=== PATIENT | male | born 1950 | race Caucasian/White ===

== ENCOUNTER 2018-08-31 10:34 | Observation (INO) | payer OTHER ==
[2018-08-31] MEDS ORDERED: ASPIRIN TABLET 325 MG TAB PO ONE (10:45)
[2018-08-31] MEDS ORDERED: ALUM & MAG HYDROX-SIMETHICONE 30 ML, LIDOCAINE VISCOUS 2% 15 ML PO ONE ×2 (10:45)
[2018-08-31] MEDS ORDERED: ALUM & MAG HYDROX-SIMETHICONE 30 ML UD ONE (10:55)
[2018-08-31] MEDS ORDERED: LIDOCAINE HCL 2% (MOUTH-THROAT) 15 ML UD ONE (10:55)
--- NOTE | 2018-08-31 11:09 | RAD ---
EXAM DESCRIPTION: Chest,1 View CLINICAL HISTORY: chest pain, flushing FINDINGS/ IMPRESSION: Comparison 09/01/2011 Normal heart size. No edema, infiltrate or effusion No pneumothorax or acute bony abnormality Electronically signed by: Gaston Espino MD 08/31/2018 11:08 AM [facility]
[2018-08-31] MEDS ORDERED: NITROGLYCERIN 0.4 MG 25 EA TAB SL ONE ×2 (12:17→12:24)
[2018-08-31] MEDS ORDERED: MORPHINE SULFATE INJ 10 MG/ML VIAL ONE (12:57)
[2018-08-31] MEDS ORDERED: MORPHINE SULFATE INJ 10 MG/ML VIAL IV ONE (13:33)
[2018-08-31] MEDS ORDERED: PANTOPRAZOLE INJECTION 40 MG in SODIUM CHLORIDE 0.9% 100ML 100 ML IVPB ONE (14:41)
[2018-08-31] MEDS ORDERED: SUCRALFATE 1 GM/10 ML 1 GM UD PO ONE (14:41)
--- NOTE | 2018-08-31 14:47 | ED.PDOC ---
History of Present Illness - General Chief Complaint: Chest Pain/LA Stated Complaint: chest pain Time Seen by Provider: 08/31/18 10:39 Source: patient Exam Limitations: no limitations - History of Present Illness Initial Comments: The patient is a 67-year-old male presenting to the emergency room secondary to chest pain that started while he was sitting working on the computer about an hour prior to arrival. Chest pain was substernal giving a little bit of shortness of breath and a little bit of flushing. At its worst it was really only about a 5 out of 10. By the time he arrived here it was down to about a 2 out of 10. Medications including a GI cocktail, nitroglycerin and morphine have all really done nothing to affect it. The discomfort is still very minor and present. He does have mild anterior chest wall discomfort palpation as well as a long-standing history of reflux issues. No fevers. He did eat a cheeseburger last night which is apparently unusual for him. The patient does see cardiology in [place] and has had a stent a few years ago. He does not take Plavix. Timing/Duration: 1 hour Severity: mild Improving Factors: nothing Worsening Factors: nothing Associated Symptoms: chest pain Allergies/Adverse Reactions: Allergies Butorphanol [From Stadol] Adverse Reaction (Verified 08/31/18 12:24) Home Medications: Ambulatory Orders Amitriptyline HCl [Elavil] 25 mg PO BEDTIME 08/31/18 Aspirin [Aspirin Low Strength] 81 mg PO DAILY 08/31/18 Review of Systems - Review of Systems Constitutional: States: no symptoms reported EENTM: States: no symptoms reported Respiratory: States: no symptoms reported Cardiology: States: chest pain Gastrointestinal/Abdominal: States: no symptoms reported Genitourinary: States: no symptoms reported Musculoskeletal: States: no symptoms reported Skin: States: no symptoms reported Neurological: States: anxiety Endocrine: States: no symptoms reported All other Systems: No Change from Baseline Past Medical History (General) - Patient Medical History Hx Cancer: No Hx Hepatitis C: No - Vaccination History Hx Tetanus, Diphtheria Vaccination: Yes Hx Influenza Vaccination: No Hx Pneumococcal Vaccination: Yes - Social History Hx Tobacco Use: No Hx Alcohol Use: No Hx Substance Use: No Hx Substance Use Treatment: No Hx Depression: No Family Medical History - Family History Mother Family History: Unknown Physical Exam - Physical Exam General Appearance: Alert, Anxious, No apparent distress Eye Exam: bilateral normal Ears, Nose, Throat: hearing grossly normal, normal ENT inspection, normal pharynx Neck: full range of motion, supple Respiratory: lungs clear, normal breath sounds, no respiratory distress, no accessory muscle use, other - he does actually have anterior chest wall discomfort palpation. Cardiovascular/Chest: normal peripheral pulses, regular rate, rhythm, no edema Peripheral Pulses: radial,right: 2+, radial,left: 2+, dorsalis pedis,right: 2+, dorsalis pedis,left: 2+ Gastrointestinal/Abdominal: non tender, soft Rectal Exam: deferred Back Exam: normal inspection, no CVA tenderness Extremity: normal range of motion, non-tender, normal inspection, no pedal edema, normal capillary refill Neurologic: production consultant II-XII nml as tested, alert, normal mood/affect, oriented x 3 Skin Exam: normal color Comments: Vital Signs - 24 hr 08/31/18 08/31/18 08/31/18 10:49 11:15 11:45 Temperature 98.7 F Pulse Rate [ 86 83 75 monitor] Respiratory 20 15 13 Rate Blood Pressure 152/91 154/92 141/85 [RA] O2 Sat by Pulse 96 96 95 Oximetry 08/31/18 08/31/18 08/31/18 12:15 12:26 12:45 Temperature 97.5 F L Pulse Rate [ 76 96 H 91 H monitor] Respiratory 17 20 18 Rate Blood Pressure 145/91 116/78 155/89 [RA] O2 Sat by Pulse 97 94 L 99 Oximetry 08/31/18 13:05 Temperature Pulse Rate [ 80 monitor] Respiratory 18 Rate Blood Pressure 116/75 [RA] O2 Sat by Pulse 94 L Oximetry Progress - Progress Progress: 08/31/18 14:48 the patient is a 67-year-old male presenting to the emergency room with chest pain that is actually very mild in nature. Source of the chest pain is not entirely certain at this point. He does have a significant cardiac history. The first set of enzymes are negative on the patient. He'll be placed in observation for the longer rule out given his history. He does have several confounding issues such as long-standing reflux and some mild chest wall discomfort. Admitted for further monitoring and care. He has received a dose of Lovenox and aspirin. Telemetry monitoring has shown normal sinus rhythm. Doses of morphine and nitroglycerin do not appear to have made any difference. He is receiving GI medications of Carafate and Protonix. - Results/Orders Results/Orders: Laboratory Tests 08/31/18 08/31/18 08/31/18 10:50 10:50 10:50 WBC 5.7 RBC 5.29 Hgb 15.7 Hct 46.4 MCV 87.8 MCH 29.7 MCHC 33.8 RDW 13.8 Plt Count 199 MPV 9.7 Absolute Neuts (auto) 3.70 Absolute Lymphs (auto) 1.50 Absolute Monos (auto) 0.30 Absolute Eos (auto) 0.10 Absolute Basos (auto) 0.10 Neutrophils % 64.6 Lymphocytes % 27.1 Monocytes % 5.3 Eosinophils % 1.8 Basophils % 1.2 PT 10.4 INR 1.04 PTT (SP) 24.2 D-Dimer, Quantitative 0.29 Sodium 138 Potassium 4.4 Chloride 103 Carbon Dioxide 28 Anion Gap 11.4 L BUN 17 Creatinine 1.21 BUN/Creatinine Ratio 14.0 Random Glucose 151 H Serum Osmolality 280.1 Calcium 9.4 Magnesium 1.8 Total Bilirubin 0.7 AST 24 ALT 58 Alkaline Phosphatase 60 Creatine Kinase 93 CK-MB (CK-2) 1.5 CK-MB (CK-2) % Not Reportable Troponin I < 0.02 B-Natriuretic Peptide < 5.0 Serum Total Protein 7.3 Albumin 4.0 Globulin 3.3 Albumin/Globulin Ratio 1.2 08/31/18 13:56 WBC RBC Hgb Hct MCV MCH MCHC RDW Plt Count MPV Absolute Neuts (auto) Absolute Lymphs (auto) Absolute Monos (auto) Absolute Eos (auto) Absolute Basos (auto) Neutrophils % Lymphocytes % Monocytes % Eosinophils % Basophils % PT INR PTT (SP) D-Dimer, Quantitative Sodium Potassium Chloride Carbon Dioxide Anion Gap BUN Creatinine BUN/Creatinine Ratio Random Glucose Serum Osmolality Calcium Magnesium Total Bilirubin AST ALT Alkaline Phosphatase Creatine Kinase 88 CK-MB (CK-2) 1.3 CK-MB (CK-2) % Not Reportable Troponin I < 0.02 B-Natriuretic Peptide Serum Total Protein Albumin Globulin Albumin/Globulin Ratio EKG shows normal sinus rhythm at 84 bpm. Normal axis. Normal voltage. Normal R-wave progression. No ST segment or T-wave changes consistent with acute ischemia. Normal QT interval. Chest x-ray shows no acute pathology. Departure - Departure Clinical Impression: Chest pain at rest Disposition: Admit Patient Home Medications: Ambulatory Orders Amitriptyline HCl [Elavil] 25 mg PO BEDTIME 08/31/18 Aspirin [Aspirin Low Strength] 81 mg PO DAILY 08/31/18 Decision To Admit - Decistion To Admit Decision to Admit Reason: Medical Nature Decision to Admit Date: 08/31/18 Decision to Admit Time: 14:50
--- NOTE | 2018-08-31 15:01 | HP ---
SUPERVISING PHYSICIAN: Owen Thompson MD CHIEF COMPLAINT: Chest pain. HISTORY OF PRESENT ILLNESS: This is a 67-year-old male patient with a history of coronary artery disease who came to the Emergency Room with chest pain. 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 At that time, he noted some chest discomfort which he attributed to reflux. He states he has reflux on a regular basis, but does not really take anything for it. He states he drinks a lot of water and sits up and it usually will go away. He decided to come in and pay some bills in town and continued to have the discomfort. Therefore, he came to the Emergency Room and sat in the parking lot for a second to see if it would go away, but it did not. Therefore, he came into the Emergency Room and was evaluated. His EKG did not show any acute changes and his troponins were negative times two. Given his history of coronary artery disease, Dr. Andre referred the patient for observation. The patient states he had a hamburger last night which he does not normally do and he had not in the last six months or so. He states he used to take Nexium for reflux, but he states it actually made the reflux worse, so he stopped taking it. In fact, the patient does tell me also that he was on about 5 or 6 medications for his heart. He could not give me the exact names, but states several were for blood pressure, one was a statin for his cholesterol and blood thinners as well. He states he was intolerant to these medicines and was told by Dr. Sharpe the last he was at the office that he did not need to take them anymore. The only thing he takes right now is amitriptyline and a baby aspirin. PAST MEDICAL HISTORY: 1. Myocardial infarction in March of 2017 for which he had a stent placed. He states he does not have a stent card and he does not know which vessel was stented. 2. Hiatal hernia. PAST SURGICAL HISTORY: 1. Percutaneous transluminal coronary angioplasty with stent. 2. Neck fusion. CURRENT MEDICATIONS: 1. Aspirin 81 mg p.o. daily. 2. Amitriptyline 25 mg at bedtime. ALLERGIES: BUTORPHANOL. FAMILY HISTORY: He states he has some family with hypertension and coronary artery disease. SOCIAL HISTORY: Nondrinker, nonsmoker. No illicit drugs. REVIEW OF SYSTEMS: CONSTITUTIONAL: No fever or chills. No recent weight loss or weight gain. HEENT: No headaches, vision changes, ear pain, nasal congestion or throat pain. RESPIRATORY: No cough, hemoptysis or pleuritic chest pain. CARDIOVASCULAR: Positive for chest pain. No palpitations or peripheral edema. GASTROINTESTINAL: Positive for reflux. No nausea, vomiting, diarrhea, constipation or abdominal pain. GENITOURINARY: No dysuria, frequency or flank pain. HEMATOLOGIC: No easy bruising and no transfusion reaction. MUSCULOSKELETAL: He does have intermittent neck pain, but does not think it is on a regular basis. No joint pain or joint swelling. No muscle cramps. INTEGUMENTARY: No rashes, lesions or wounds. ENDOCRINE: No polydipsia, polyuria or polyphagia. No heat or cold intolerance. NEUROLOGIC: Positive for some weakness, but no syncope, paresthesias or seizures. PHYSICAL EXAMINATION: VITAL SIGNS: Blood pressure 116/76. Heart rate 80. Respiratory rate 18. Temperature 97.5. Oxygen saturation 94%. GENERAL: Mr. Encarnacion is a 67-year-old male patient in no active distress currently. HEENT: Normocephalic, atraumatic. Pupils are equal and reactive. No nasal drainage. Throat with moist mucosa. NECK: Supple. Midline trachea. No jugular venous distention. CHEST: Symmetrical with equal rise and fall of the chest with inspiration and expiration. Lung sounds are clear to auscultation bilaterally. CARDIOVASCULAR: Regular rate and rhythm. Normal S1, S2. ABDOMEN: Soft. Positive bowel sounds. Obese. GENITOURINARY: Deferred. EXTREMITIES: Pulses 2+. Capillary refill is less than 2 seconds. NEUROLOGIC: The patient is alert and oriented. Moves all extremities. Extraocular movements are intact. LABORATORY: Labs show negative troponin. Chemistries unremarkable except for elevated glucose of 151. CBC is completely normal. Coags are normal. Chest x- ray does not show any acute cardiopulmonary processes. ASSESSMENT: 1. Chest pain, rule out acute coronary syndrome. 2. History of coronary artery disease status post stent in March of 2017. 3. Gastroesophageal reflux disease with a hiatal hernia. PLAN: At this time, the patient will be placed in the hospital as observation for serial cardiac enzymes as well as EKGs. If all those remain normal, then he can go home tomorrow with a followup with Dr. Sharpe, who is his early interventionist. The patient really refuses to take any statins or cardiac medications so none of these will be started at this time. If anything becomes abnormal, I will discuss with Dr. Sharpe and facilitate a transfer at that time. #[id number] [facility]
[2018-08-31] MEDS ORDERED: SODIUM CHLORIDE 0.9% 100ML 100 ML IVPB ONE (15:04)
[2018-08-31] MEDS ORDERED: PANTOPRAZOLE SODIUM IV 40 MG VIAL ONE (15:04)
[2018-08-31] MEDS ORDERED: ENOXAPARIN SODIUM 100 MG/ML SYG SUBCU ONE (15:07)
[2018-08-31] MEDS ORDERED: NITROGLYCERIN 0.4 MG 25 EA TAB SL PRN (15:09)
[2018-08-31] MEDS ORDERED: SODIUM CHLORIDE 0.9% (FLUSH) 10 ML SYG IV PRN (15:09)
[2018-08-31] MEDS ORDERED: MORPHINE SULFATE INJ 10 MG/ML VIAL IV PRN (15:09)
[2018-08-31] MEDS ORDERED: ACETAMINOPHEN 325 MG TAB PO PRN (15:09)
[2018-08-31] MEDS ORDERED: IV SET AND CAP CHANGE INJ INJ SCH (15:30)
[2018-08-31] MEDS: SODIUM CHLORIDE 0.9% (FLUSH) 10 ML SYG IV SCH (20:33)
[2018-08-31] MEDS: FAMOTIDINE 20 MG TAB PO SCH (20:33)
[2018-09-01 06:34] VITALS: BP 132/83; TEMP 98.3; O2SAT 95
[2018-09-01] MEDS ORDERED: ASPIRIN TABLET 325 MG TAB ONE (06:54)
[2018-09-01] MEDS: FAMOTIDINE 20 MG TAB PO SCH (08:02)
[2018-09-01] MEDS: SODIUM CHLORIDE 0.9% (FLUSH) 10 ML SYG IV SCH (08:02)
[2018-09-01] MEDS ORDERED: ASPIRIN TABLET 325 MG TAB PO SCH (09:00)
--- NOTE | 2018-09-01 15:38 | DS ---
SUPERVISING PHYSICIAN: Owen Thompson MD ADMISSION DIAGNOSIS: 1. Chest pain, rule out acute coronary syndrome. 2. History of coronary artery disease status post stent in March of 2017. 3. Gastroesophageal reflux disease with hiatal hernia. DISCHARGE DIAGNOSIS: 1. Chest pain, rule out acute coronary syndrome. 2. History of coronary artery disease status post stent in March of 2017. 3. Gastroesophageal reflux disease with hiatal hernia. HISTORY OF PRESENT ILLNESS: This is a 67-year-old male patient with a history of coronary artery disease who came to the Emergency Room with chest pain. 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 At that time, he noted some chest discomfort which he attributed to reflux. He states he has reflux on a regular basis, but does not really take anything for it. He states he drinks a lot of water and sits up and it usually will go away. He decided to come in and pay some bills in town and continued to have the discomfort. Therefore, he came to the Emergency Room and sat in the parking lot for a second to see if it would go away, but it did not. Therefore, he came into the Emergency Room and was evaluated. His EKG did not show any acute changes and his troponins were negative times two. Given his history of coronary artery disease, Dr. Andre referred the patient for observation. The patient states he had a hamburger last night which he does not normally do and he had not in the last six months or so. He states he used to take Nexium for reflux, but he states it actually made the reflux worse, so he stopped taking it. In fact, the patient does tell me also that he was on about 5 or 6 medications for his heart. He could not give me the exact names, but states several were for blood pressure, one was a statin for his cholesterol and blood thinners as well. He states he was intolerant to these medicines and was told by Dr. Sharpe the last he was at the office that he did not need to take them anymore. The only thing he takes right now is amitriptyline and a baby aspirin. HOSPITAL COURSE: Over the hospital course, he had serial EKGs as well as troponins which remained negative. His chest pain was resolved and, therefore, he was discharged in stable condition on the morning of the 09/01/18. He already has a followup scheduled with Dr. Sharpe in a couple of months and I have asked him to keep this appointment. No new medications. He is to continue his current diet. Increase activity as tolerated. #[id number] [facility]
== END 2018-09-01 08:54 | disposition home or self-care (01) ==
LOC: ER 10:34 → MS 15:00
PROVIDERS: ADMIT Nurse Practitioner; ATTEND Nurse Practitioner
DX: R07.89 Other chest pain (principal); I25.10 Atherosclerotic heart disease of native coronary artery without angina pectoris; I25.2 Old myocardial infarction; K21.9 Gastro-esophageal reflux disease without esophagitis; K44.9 Diaphragmatic hernia without obstruction or gangrene; Z79.82 Long term (current) use of aspirin; Z79.899 Other long term (current) drug therapy; Z88.6 Allergy status to analgesic agent; Z95.5 Presence of coronary angioplasty implant and graft; Z82.49 Family history of ischemic heart disease and other diseases of the circulatory system
CPT/HCPCS: 96374; 96375; 96372; J2270; J1650; J7050; 85379; 82553 ×4; 80053; 80061; 36415 ×3; 85025; 82550 ×4; 83735; 85730; 85610; 84484 ×4; 83880; 71045; 99285; 93005 ×3; G0378

== ENCOUNTER 2018-11-09 19:19 | Emergency (ER) | payer MEDICARE, OTHER ==
--- NOTE | 2018-11-09 20:12 | ED.PDOC ---
History of Present Illness - General Chief Complaint: Back Pain or Injury Stated Complaint: low back pain going into lower abdomen Time Seen by Provider: 11/09/18 20:08 Source: patient Exam Limitations: no limitations - History of Present Illness Initial Comments: C/O FLANK PAIN ONSET TODAY. SIMILAR TO PREVIOUS EPISODES WITH KIDNEY STONES. 12 HOURS DURATION, SHARP, CONSTANT. Severity: moderate Improving Factors: nothing Worsening Factors: nothing Allergies/Adverse Reactions: Allergies Butorphanol [From Stadol] Adverse Reaction (Verified 08/31/18 12:24) Home Medications: Ambulatory Orders Amitriptyline HCl [Elavil] 25 mg PO BEDTIME 08/31/18 Aspirin [Aspirin Low Strength] 81 mg PO DAILY 08/31/18 Ciprofloxacin [Cipro] 500 mg PO BID #20 ml 11/10/18 Tramadol HCl [Ultram] 50 mg PO Q6HR PRN #15 tab 11/10/18 Review of Systems - Review of Systems Constitutional: Denies: chills, fever EENTM: States: no symptoms reported Respiratory: Denies: cough, short of breath Cardiology: Denies: chest pain, palpitations Gastrointestinal/Abdominal: States: abdominal pain. Denies: nausea, vomiting Genitourinary: Denies: dysuria, hematuria Musculoskeletal: States: back pain, other - NO HX INJURY. Denies: neck pain Skin: States: no symptoms reported Neurological: Denies: numbness, tingling, weakness Endocrine: States: no symptoms reported Hematologic/Lymphatic: States: no symptoms reported Past Medical History (General) - Patient Medical History Hx Seizures: No Hx Stroke: No Hx Dementia: No Hx Asthma: No Hx of COPD: No Hx Cardiac Disorders: Yes - stent placement Hx Congestive Heart Failure: No Hx Pacemaker: No Hx Hypertension: No Hx Diabetes: No Hx Gastroesophageal Reflux: No Hx Renal Disease: No Hx Cancer: No Hx Hepatitis C: No Hx MRSA: No Surgical History: other - Vaccination History Hx Tetanus, Diphtheria Vaccination: Yes Hx Influenza Vaccination: No Hx Pneumococcal Vaccination: Yes - Social History Hx Tobacco Use: Yes - vapes Hx Alcohol Use: No Hx Substance Use: No Hx Substance Use Treatment: No Hx Depression: No Hx Physical Abuse: No Hx Emotional Abuse: No Family Medical History - Family History Mother Family History: Unknown Living Status: Hx Family Asthma: No Hx Family Congestive Heart Failure: No Hx Family Hypertension: No Hx Family Stroke: No Hx Cardiac Disease: No Hx Family Diabetes: Yes Hx Family Cancer: No Physical Exam - Physical Exam General Appearance: Alert, No apparent distress Eye Exam: bilateral normal Ears, Nose, Throat: normal ENT inspection Neck: non-tender, full range of motion, supple Respiratory: lungs clear, no respiratory distress Cardiovascular/Chest: regular rate, rhythm, no murmur Gastrointestinal/Abdominal: normal bowel sounds, soft, other - MOD TTP RLQ, NO G/R Back Exam: normal inspection, no vertebral tenderness, CVA tenderness (R) Extremity: normal range of motion, non-tender, normal inspection Neurologic: no motor/sensory deficits, alert, normal mood/affect Skin Exam: normal color, warm/dry Lymphatic: no adenopathy Progress - Progress Progress: 11/09/18 23:05 PAIN NO BETTER, WILL GET CT ABDOMEN - EKG/XRAY/CT CT: ABDOMEN/PELVIS STRANDING AROUND PROSTATE, RENAL STONE, NO URETERAL Departure - Departure Clinical Impression: Acute prostatitis Abdominal pain Qualifiers: Abdominal location: right lower quadrant Qualified Code(s): R10.31 - Right lower quadrant pain Time of Disposition: 00:49 Disposition: Discharge to Home or Self Care Condition: Good Departure Forms: ED Discharge - Pt. Copy, Patient Portal Self Enrollment Instructions: Prostatitis Referrals: ELAINA HIGGINS,LUCY Griffith [Primary Care Provider] - 1-2 Weeks Prescriptions: Tramadol HCl [Ultram] 50 mg PO Q6HR PRN #15 tab PRN Reason: Pain Ciprofloxacin [Cipro] 500 mg PO BID #20 ml Home Medications: Ambulatory Orders Amitriptyline HCl [Elavil] 25 mg PO BEDTIME 08/31/18 Aspirin [Aspirin Low Strength] 81 mg PO DAILY 08/31/18 Ciprofloxacin [Cipro] 500 mg PO BID #20 ml 11/10/18 Tramadol HCl [Ultram] 50 mg PO Q6HR PRN #15 tab 11/10/18
[2018-11-09] MEDS: SODIUM CHLORIDE 0.9% 1000ML 1,000 ML IVS ONE (20:34)
[2018-11-09] MEDS: KETOROLAC TROMETHAMINE INJ 30 MG/ML VIAL IV ONE (20:34)
[2018-11-09] MEDS: ONDANSETRON INJ 4 MG/2 ML VIAL IV ONE (23:36)
[2018-11-09] MEDS: fentaNYL CITRATE INJ 50 MCG/ML AMP IV ONE (23:36)
--- NOTE | 2018-11-10 00:32 | CT ---
EXAM DESCRIPTION: Abdoment/Pelvis w/o Contrast CLINICAL HISTORY: 68 years Male RLQ PAIN, R/O APPENDICITIS VS RENAL CALCULUS COMPARISON: None. TECHNIQUE: Contiguous axial images obtained through the abdomen and pelvis without IV contrast. Reformatted images obtained. This exam was performed according to our department optimization program which includes automated exposure control, adjustment of the mA and/or kv according to patient size and/or use of iterative reconstruction technique. FINDINGS: The lung bases are clear. The liver appears unremarkable. The spleen and pancreas appear unremarkable. No adrenal masses. Bilateral renal calculi which are nonobstructing. No hydronephrosis. Urinary bladder is incompletely distended. Small amount of stranding around the prostate which could reflect prostatitis. The gallbladder is visualized. No aneurysmal dilatation of the aorta. No bowel obstruction. Unremarkable appendix. Diverticulosis without diverticulitis. No free pelvic fluid. IMPRESSION: No evidence of appendicitis Stranding around the prostate which could reflect prostatitis Diverticulosis Nonobstructing renal calculi Electronically signed by: [place] Hoang MD 11/10/2018 12:04 AM CDT
[2018-11-10 00:43] VITALS: BP 119/56
[2018-11-10] MEDS ORDERED: cefTRIAXone SODIUM 1 GM VIAL ONE (00:47)
[2018-11-10] MEDS ORDERED: SODIUM CHL 0.9% 50ML MIN-BAG+ 50 ML IVPB ONE (00:47)
[2018-11-10] MEDS: cefTRIAXone SODIUM 1 GM in SODIUM CHL 0.9% 50ML MIN-BAG+ 50 ML IVPB ONE (00:55)
[2018-11-10 01:01] VITALS: TEMP 97; O2SAT 95
== END 2018-11-10 01:18 | disposition home or self-care (01) ==
LOC: ER 19:19
DX: N41.0 Acute prostatitis (principal); R10.31 Right lower quadrant pain; N20.0 Calculus of kidney; K57.30 Diverticulosis of large intestine without perforation or abscess without bleeding; I51.9 Heart disease, unspecified; Z95.5 Presence of coronary angioplasty implant and graft; F17.290 Nicotine dependence, other tobacco product, uncomplicated; Z79.82 Long term (current) use of aspirin; Z79.899 Other long term (current) drug therapy; Z88.8 Allergy status to other drugs, medicaments and biological substances
CPT/HCPCS: 36415; 74176; 80048; 81001; 85025; J0696; J1885; J2405; J3010; J7030; J7050